=== PATIENT | female | born 1985 | race African-American/Black ===

== ENCOUNTER 2017-05-30 21:20 | Emergency (ER) | payer BC ==
[~2017-05-30] VITALS: Ht 167.6 cm; Wt 104.5 kg
[2017-05-31] MEDS ORDERED: FIORICET 50-301 EAC1 PO (00:49)
[2017-05-31] MEDS ORDERED: ZOFRAN4 MG PO (00:49)
[2017-05-31 01:17] VITALS: BP 109/56
== END 2017-05-31 01:19 | disposition home or self-care (01) ==
LOC: EME 21:20
PROVIDERS: Nurse Practitioner Family
DX: G43.909 Migraine, unspecified, not intractable, without status migrainosus (principal); F41.0 Panic disorder [episodic paroxysmal anxiety]
CPT/HCPCS: 70450; 81025; 99281; 99285; J1200; J1885; J2765; J7030